=== PATIENT | male | born 1995 | race Caucasian/White ===

== ENCOUNTER 2021-03-02 12:47 | Emergency (ER) | payer OTHER, SELFPAY ==
--- NOTE | ~2021-03-02 | XR_ITS ---
XR finger 2nd LT min 2V DATE: 03/02/2021 13:56 INDICATION: Laceration second digit TECHNIQUE: 4 views COMPARISON: None FINDINGS: There is soft tissue bandage material over the index finger. No radiopaque foreign body is evident. No fracture, dislocation, periosteal reaction or bone destruction. IMPRESSION: No fracture or dislocation or radiopaque foreign body Reviewed, dictated and finalized at location A.
[2021-03-02 12:49] VITALS: BP 113/89; PULSE 91; RESP 18; TEMP 36.6; O2SAT 99
--- NOTE | 2021-03-02 13:42 | ED.WOUNDLAC ---
HPI - Wound/Laceration General Chief Complaint: Wound/Laceration Stated Complaint: finger lac Time Seen by Provider: 03/02/21 13:13 Source: patient Mode of arrival: ambulatory Limitations: no limitations History of Present Illness HPI narrative: This is a 25-year-old male that presents the emergency department for laceration sustained just prior to arrival. Reports he sustained a laceration from a knife at work while trying to pry apart frozen meat. Reports bleeding and pain to the area. He is not up-to-date on tetanus. Denies decreased range of motion or numbness. Related Data Home Medications Medication Instructions Recorded Confirmed No Home Medications 03/02/21 03/02/21 Allergies Allergy/AdvReac Type Severity Reaction Status Date / Time No Known Allergies Allergy Verified 03/02/21 12:47 Review of Systems Review of Systems: Narrative: CONSTITUTIONAL: Denies fever SKIN: Reports laceration MUSCULOSKELETAL: Denies joint pain, or myalgia. NEUROLOGIC: Denies numbness All systems reviewed & are unremarkable except as noted in HPI and below PMFSH Past Medical History Medical History (Updated 03/02/21 @ 15:35 by Monica Cotto PA-C) No active medical problems Social History Social History (Updated 03/02/21 @ 13:45 by Monica Cotto PA-C) Smoking status: Never smoker Gender identity (if verbalized by the patient): Male Exam Narrative: Exam Narrative: GENERAL: Well-appearing, well-nourished, and in no acute distress. HEAD: Normocephalic, atraumatic. EYES: EOMI. EXTREMITIES: Normal range of motion. No edema. SKIN: Warm, dry, no rash. 2cm flap laceration into subcutaneous tissue present to the left 2nd finger distal phalanx. Normal radial pulses. Normal sensation NEURO: No focal deficits. Alert and oriented x3. PSYCH: Normal mood and affect Course Vital Signs Vital signs: Vital Signs Temperature 97.9 F 03/02/21 12:49 Pulse Rate 91 03/02/21 12:49 Respiratory Rate 18 03/02/21 12:49 Blood Pressure 113/89 03/02/21 12:49 Pulse Oximetry 99 03/02/21 12:49 Temperature 98.1 F 03/02/21 14:09 Pulse Rate 60 03/02/21 14:09 Respiratory Rate 18 03/02/21 14:09 Blood Pressure 108/74 03/02/21 14:09 Pulse Oximetry 100 03/02/21 14:09 Procedures Laceration Laceration 1: Date: 03/02/21 Time: 15:32 Site: hand Side (If applicable): left Size (cm): 2 Description: flap Depth: simple, single layer Local Anesthetic: lidocaine 1% Amount of anesthesia used (mL): 3 Pre-repair: irrigated ====== Skin Level ====== Skin layer closed with: nylon Size (cm): 5-0 Number of sutures: 3 Technique: simple, interrupted ====== Subcutaneous Layer ====== ====== Muscle Layer ====== ====== Tendon Layer ====== MDM - Wound/Laceration MDM Narrative Medical decision making narrative: Patient presents the emergency department for laceration to left second finger sustained just prior to arrival. Wound was irrigated and closed with sutures. Patient was updated on tetanus. He was educated on wound care. Finger x-ray is without acute osseous abnormalities. He is to follow-up with primary care doctor. He was given warnings to return to the ER Imaging Data Radiologist's impression: ITS Impressions Finger X-Ray 03/02/21 14:00 IMPRESSION: No fracture or dislocation or radiopaque foreign body Critical Care Time Critical Care Time Critical Care Time: No Discharge Plan Discharge Clinical Impression: Laceration Patient Disposition: Home, Self-Care Condition: Stable Instructions: Antibiotic Form, Care For Your Stitches (ED), Laceration (ED) Additional Instructions: Return to the emergency department if you experience fever, redness or swelling of your wound, abnormal drainage from your wound, or any other symptoms that are concerning to you. Apply an
[2021-03-02] MEDS: TETANUS,DIPHTHERIA,AC PERTUSSIS ADULT (0.5 ML) BOOSTRIX IM (14:05)
[2021-03-02 14:09] VITALS: BP 108/74; PULSE 60; RESP 18; TEMP 36.7; O2SAT 100
--- NOTE | 2021-03-02 14:13 | PC.NURSE ---
Supplies for PA to close wound are in room.
[2021-03-02 15:44] VITALS: BP 111/77; PULSE 64; RESP 16; TEMP 36.8; O2SAT 100
== END 2021-03-02 16:24 | disposition home or self-care (01) ==
PROVIDERS: Emergency Provider Emergency Medicine
DX: S61.211A Laceration without foreign body of left index finger without damage to nail, initial encounter (principal); Z23 Encounter for immunization; Y93.G1 Activity, food preparation and clean up; W26.0XXA Contact with knife, initial encounter
CPT/HCPCS: 12001; 73140; 90471; 90715; 99283

== ENCOUNTER 2021-03-24 16:34 | Emergency (ER) | payer OTHER, SELFPAY ==
[2021-03-24 16:55] VITALS: BP 96/53; PULSE 75; RESP 20; TEMP 36.5; O2SAT 96
[2021-03-24 19:04] VITALS: BP 114/63; PULSE 65; RESP 20; TEMP 36.8; O2SAT 99
--- NOTE | 2021-03-24 20:32 | ED.GENADULT ---
HPI - General Adult General Chief complaint: Wound/Laceration Stated complaint: SUTURE REMOVAL Time Seen by Provider: 03/24/21 19:55 Source: patient and RN notes reviewed Mode of arrival: ambulatory Limitations: no limitations History of Present Illness HPI narrative: Patient is a 25-year-old male who presents for suture removal of the left index finger from a laceration he had repaired 2 weeks ago patient denies any pain or other complaints presents in no distress resting comfortably in the room on arrival Related Data Home Medications Medication Instructions Recorded Confirmed No Home Medications 03/02/21 03/24/21 Allergies Allergy/AdvReac Type Severity Reaction Status Date / Time No Known Allergies Allergy Verified 03/24/21 19:04 Review of Systems Review of Systems: All systems reviewed & are unremarkable except as noted in HPI and below PMFSH Past Medical History Medical History No active medical problems Social History Social History Smoking status: Never smoker Gender identity (if verbalized by the patient): Male Exam Narrative: GENERAL: Well-appearing, well-nourished, and in no acute distress. HEAD: Normocephalic, atraumatic. EYES: PERRLA and EOMI. ENT: Nares clear, no rhinorrhea or epistaxis. Mucous membranes moist. EXTREMITIES: Normal range of motion. No edema. SKIN: Warm, dry, no rash. Healed laceration of the distal left index finger [address] NEURO: No focal deficits. Alert and oriented x3. Neurovascularly intact PSYCH: Normal mood and affect. Course Course Emergency Course: Patient in the room no distress aware of case findings treatment plan and diagnosis felt appropriate for outpatient reevaluation Vital Signs Vital signs: Vital Signs Temperature 97.7 F 03/24/21 16:55 Pulse Rate 75 03/24/21 16:55 Respiratory Rate 20 03/24/21 16:55 Blood Pressure 96/53 L 03/24/21 16:55 Pulse Oximetry 96 03/24/21 16:55 Temperature 98.2 F 03/24/21 19:04 Pulse Rate 65 03/24/21 19:04 Respiratory Rate 20 03/24/21 19:04 Blood Pressure 114/63 03/24/21 19:04 Pulse Oximetry 99 03/24/21 19:04 Procedures Other Procedure Procedure 1: Other Procedure: 3 sutures removed using pickups and 11 blade Medical Decision Making MDM Narrative Medical decision making narrative: Patients injury or pain is consistent with musculoskeletal etiology. No signs of neurological or vascular compromise on exam. Compartments and tisues are soft without signs of compartment syndrome. Pain is felt appropriate for further evaluation on an outpatient basis. Vital Signs Vital Signs: Vital Signs Temperature 97.7 F 03/24/21 16:55 Pulse Rate 75 03/24/21 16:55 Respiratory Rate 20 03/24/21 16:55 Blood Pressure 96/53 L 03/24/21 16:55 Pulse Oximetry 96 03/24/21 16:55 Temperature 98.2 F 03/24/21 19:04 Pulse Rate 65 03/24/21 19:04 Respiratory Rate 20 03/24/21 19:04 Blood Pressure 114/63 03/24/21 19:04 Pulse Oximetry 99 03/24/21 19:04 Discharge Plan Discharge Clinical Impression: Visit for suture removal Patient Disposition: Home, Self-Care Condition: Stable Instructions: Antibiotic Form Additional Instructions: Keep wound clean and dry. Do not soak, take baths, or swim until wound is completely healed. If any signs of infection such as redness, swelling, increasing pain, drainage of purulent discharge, streaks up your extremity develop, seek medical attention immediately. Followup with your primary care provider in [7] days for reevaluation as needed [] Prescriptions: No Action No Home Medications RF: 0 Follow-up/Referrals: Marilyn Singh MD [Primary Care Provider] -
== END 2021-03-24 20:53 | disposition home or self-care (01) ==
PROVIDERS: Emergency Provider Emergency Medicine; PCP Family Medicine
DX: S61.211D Laceration without foreign body of left index finger without damage to nail, subsequent encounter (principal); X58.XXXD Exposure to other specified factors, subsequent encounter
CPT/HCPCS: 99281